=== PATIENT | male | born 1945 | race Caucasian/White ===

== ENCOUNTER 2020-06-18 12:51 | Outpatient (CLI) | payer OTHER | END 2020-06-18 23:59 | disposition home or self-care (01) | LOC: WOU 12:51 | PROVIDERS: ATTEND Specialist | DX: E11.52 Type 2 diabetes mellitus with diabetic peripheral angiopathy with gangrene (principal); I96 Gangrene, not elsewhere classified; E11.621 Type 2 diabetes mellitus with foot ulcer; L97.518 Non-pressure chronic ulcer of other part of right foot with other specified severity; Z79.84 Long term (current) use of oral hypoglycemic drugs; Z87.891 Personal history of nicotine dependence | CPT/HCPCS: 71046; G0463 ==